=== PATIENT | female | born 1985 | race Caucasian/White ===

== ENCOUNTER 2021-02-26 21:56 | Emergency (ER) | payer BC ==
[~2021-02-26] VITALS: Ht 188 cm; Wt 103.4 kg
[2021-02-26 23:15] VITALS: BP 136/75
--- NOTE | 2021-02-27 00:03 | PHYS DOC ---
Past History Past Medical History: No Pertinent History Past Surgical History: Other Alcohol Use: Sober Drug Use: Marijuana Adult General Chief Complaint Chief Complaint: DENTAL PROBLEM HPI HPI Patient is a 35-year-old female who presents with neck/jaw pain due to an infected left second molar. She reports the tooth has been infected for many months however she has not received dental follow-up. She reports over the course of the past week the pain has become worse. Today she reports the pain was so bad that she felt pain on swallowing. She reports she still is able to swallow both solids and liquids but has not been able to chew on the left side due to the infected tooth for many months. She reports the pain starts on her left upper jaw and radiates to the left side of her neck she also reports pain on palpation of the left ear. She denies changes in voice, inability to tolerate secretions, fevers at home. Review of Systems Review of Systems Fourteen body systems of review of systems have been reviewed. See HPI for pertinent positives and negative responses, other giordano all other systems are negative, non-pertinent or non-contributory Allergies Allergies Allergies Coded Allergies Type Severity Reaction Last Updated Verified Penicillins Allergy Unknown 02/26/21 Yes Physical Exam Physical Exam Constitutional: Well developed, well nourished, appears uncomfortable due to pain, non-toxic appearance. HENT: Normocephalic, atraumatic, bilateral external ears normal, oropharynx moist, poor dentition, midface stable with TTP left maxillary sinus with mild swelling present without crepitus or other concerning findings, numerous dental carries most concerning at teeth #15, 19, no oral exudates, nose normal. Eyes: PERRLA, EOMI, conjunctiva normal, no discharge. Neck: Normal range of motion, no tenderness, supple, no stridor. Cardiovascular: Heart rate regular, sinus rhythm, no murmurs rubs or gallops Lungs & Thorax: Bilateral breath sounds clear to auscultation Abdomen: Bowel sounds normal, soft, no tenderness, no masses, no pulsatile masses. Nonsurgical abdomen, no peritoneal signs Skin: Warm, dry, no erythema, no rash. Back: No tenderness, no CVA tenderness. Extremities: No tenderness, no cyanosis, no clubbing, ROM intact, no edema. Neurologic: Alert and oriented X 3, grossly normal motor & sensory function, no focal deficits noted. Psychologic: Anxious affect and mood Current Patient Data Vital Signs Vital Signs Date Time Temp Pulse Resp B/P (MAP) Pulse Ox O2 Delivery O2 Flow Rate FiO2 02/26/21 23:15 97.6 72 20 136/75 (95) 100 Room Air EKG EKG [] Radiology/Procedures Radiology/Procedures [] Heart Score C/O Chest Pain: No Risk Factors: Risk Factors: DM, Current or recent (<one month) smoker, HTN, HLP, family history of CAD, obesity. Risk Scores: Risk Factors: DM, Current or recent (<one month) smoker, HTN, HLP, family history of CAD, obesity. Course & Med Decision Making Course & Med Decision Making VSS. HPI and PE concerning for infected dental carries. Educated on disease process and need for dentist follow-up Given clinical presentation, high-risk for worsened infection and joint-decision to use clindamycin after receiving all potential abx and side effects. Short- term narcotic meds written after reviewing clean [employer] history Strict return precautions discussed with good understanding, all questions and concerns addressed prior to departure Angelica Disclaimer [employer] Disclaimer This electronic medical record was generated, in whole or in part, using a voice recognition dictation system. Departure Departure: Impression: Primary Impression: Dental caries Disposition: HOME / SELF CARE / HOMELESS Condition: STABLE Referrals: [facility] (PCP) Patient Instructions: Dental Caries Additional Instructions: You were seen for dental pain. As discussed, there is concern for acute infe ction and so, you were prescribed an antibiotic that you should take as prescribed to completion. In addition, take Ibuprofen (600-800mg) and Tylenol (500-650mg) alternating every 4-6 hours to help with inflammation and pain while you contact a dentist for further care. You should return to the ED if you develop worsening pain, fever > 101, swelling, redness, or any other new or concerning symptoms. Unfortunately, your pain is not likely to improve without seeing a dentist for further evaluation and treatment of your poor dentition and dental caries. Scripts Clindamycin Hcl (CLINDAMYCIN HCL) 300 Mg Capsule 1 CAP PO TID for DENTAL INFECTION for 7 Days, #20 CAP Prov: GOOD BRINK DO 02/27/21 Hydrocodone Bit/Acetaminophen (HYDROCODONE-APAP 5-325 ) 1 Each Tablet 1 TAB PO PRN Q6HRS PRN for PAIN, #10 TAB 0 Refills Prov: GOOD BRINK DO 02/27/21 GOOD BRINK DO Feb 27, 2021 00:03
[2021-02-27] MEDS ORDERED: HYDR-2155 PO (01:02)
[2021-02-27] MEDS ORDERED: CLIN300C9 PO (01:02)
[2021-02-27] MEDS ORDERED: CLINDAMYCIN HCL 150 MG CAPSULE PO ONE (01:15)
[2021-02-27] MEDS ORDERED: HYDROcodone/APAP 5/325MG 1 TAB TABLET PO ONE (01:15)
== END 2021-02-27 01:28 | disposition home or self-care (01) ==
LOC: ER 21:56
DX: K02.9 Dental caries, unspecified (principal); R68.84 Jaw pain; Z88.0 Allergy status to penicillin
CPT/HCPCS: 99283